=== PATIENT | male | born 1995 | race Caucasian/White ===

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

== ENCOUNTER → 2018-01-01 | Outpatient (CLI) | payer OTHER ==
[~2018-01-01] MED LIST: GADAVIST IV PRN
--- NOTE | 2018-01-01 08:54 | DIAGNOSTIC IMAGING REPORT ---
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 TECHNIQUE: Multisequence, multiplanar MR imaging of the chest was performed before and after the administration of intravenous contrast. IV contrast: 10 mL of Gadavist. COMPARISON: Chest x-ray from 03/30/2012. FINDINGS: Localizer images: Unremarkable. A marker is noted over the upper inner quadrant of the left chest. No subjacent mass or subcutaneous edema. No abnormal enhancement. The left sternoclavicular joint is normal. The left first costochondral junction is normal. However, the left second costochondral junction is more convex than on the right (series 8 image 8). Asymmetry is also apparent on coronal imaging (series 6 image 35). Trace bony edema is also suspected in the anterior left second rib (series 7 image 9). Prominent pectoral musculature bilaterally. No chest wall abnormality. Normal aorta and cervical branch vessels. Normal heart size. No lymphadenopathy. No pericardial or pleural effusion. Upper abdomen normal. Limited evaluation of the lung parenchyma on MR is within normal limits. Normal signal intensity of bone marrow. IMPRESSION: 1. Subtle findings of asymmetric convexity of the left second costochondral junction with potential trace bony edema in the anterior left second rib. Findings could suggest acute to subacute nondisplaced articular cartilage/costochondral fracture. 2. No evidence of neoplasm. No other abnormality at the site of clinical concern. Electronically signed by: Humberto Feliz M.D. 01/01/2018 8:53 AM Dictated Date/Time: 01/01/2018 8:44 AM
== END | disposition home or self-care (01) ==
LOC: C.MRI 07:44
PROVIDERS: ATTEND Family Medicine
DX: D48.1 Neoplasm of uncertain behavior of connective and other soft tissue (principal)